=== PATIENT | male | born 1950 | race Caucasian/White ===

== ENCOUNTER 2019-10-31 00:12 | Emergency (ER) | payer BC ==
--- NOTE | 2019-10-31 00:15 | ED Physician Documentation ---
PD HPI CHEST PAIN - Stated complaint Stated Complaint: CHEST PX - History obtained from History obtained from: Patient - History of Present Illness Timing - onset: Enter time (23:30), Today Timing - onset during: Sleep Timing - duration: Minutes Timing - details: Abrupt onset, Intermittant Pain level max: 8 Pain level now: 2 Quality: Pain Location: Substernal Radiation: Other (does not radiate) Improved by: Nothing Worsened by: Other (no apparent exacerbating factors) Associated symptoms: Palpitations. No: Shortness of air, Diaphoresis, Nausea, Vomiting, Feeling faint / dizzy, General Weakness Similar symptoms before: Has not had sx before Recently seen: Not recently seen - Additional information Additional information: woken from sleep at 11:30 PM tonight due to midline chest pain and rapid palpitations. He denies h/o similar symptoms. Arrives to ED by private vehicle. Review of Systems Constitutional: reports: Reviewed and negative Eyes: reports: Reviewed and negative Ears: reports: Reviewed and negative Nose: reports: Reviewed and negative Throat: reports: Reviewed and negative Cardiac: reports: Chest pain / pressure, Palpitations. denies: Pedal edema, Calf pain Respiratory: reports: Reviewed and negative GI: reports: Reviewed and negative : reports: Reviewed and negative Skin: reports: Reviewed and negative Musculoskeletal: reports: Reviewed and negative Neurologic: reports: Reviewed and negative PD PAST MEDICAL HISTORY - Past Medical History Past Medical History: Yes GI: Other (IBS) - Past Surgical History Past Surgical History: No - Present Medications Home Medications: Ambulatory Orders Medication Instructions Recorded Confirmed Atorvastatin [Lipitor] 10/31/19 Metoprolol Tartrate 1 tab 10/31/19 - Allergies Allergies/Adverse Reactions: Allergies Allergy/AdvReac Type Severity Reaction Status Date / Time No Known Drug Allergies Allergy Verified 10/31/19 00:22 - Living Situation Living Situation: reports: With family Living Arrangement: reports: At home (visiting [facility] (from [place])) - Social History Does the pt smoke?: No PD ED PE NORMAL - Vitals Vital signs reviewed: Yes - General General: Alert and oriented X 3, No acute distress, Well developed/nourished - HEENT HEENT: Moist mucous membranes - Neck Neck: Supple, no meningeal sign - Respiratory Respiratory: No respiratory distress, Clear bilaterally - Abdomen Abdomen: Soft, Non tender - Derm Derm: Normal color, Warm and dry - Extremities Extremities: No edema - Neuro Neuro: Alert and oriented X 3 PD ED PE EXPANDED - Cardiac Cardiac: Tachy, Irregularly irregular Results - Vitals Vitals: Vital Signs - 24 hr 10/31/19 10/31/19 10/31/19 00:22 00:36 00:41 Temperature 36.5 C Heart Rate 114 H 131 H 125 H Respiratory 16 18 18 Rate Blood Pressure 148/104 H 136/76 H 110/70 O2 Saturation 100 10/31/19 10/31/19 10/31/19 00:45 01:42 04:06 Temperature Heart Rate 106 H 110 H 128 H Respiratory 18 20 Rate Blood Pressure 113/78 109/68 95/73 O2 Saturation 100 96 10/31/19 10/31/19 10/31/19 04:48 05:39 05:46 Temperature Heart Rate 133 H 124 H 127 H Respiratory 13 Rate Blood Pressure 107/64 105/54 L 106/76 O2 Saturation 97 Oxygen O2 Source Room air - EKG (time done) #1 Rate: Rate (enter#) (136) Rhythm: Atrial fibrillation [place]: Normal QRS: Normal Ischemia: ST depression (minimal, inferior leads) Other comments: Other comments (PVC, couplet) #2 Rate: Rate (enter#) (126) Rhythm: Atrial fibrillation [place]: Normal QRS: Normal Ischemia: Normal ST segments - Labs Labs: Laboratory Tests 10/31/19 10/31/19 10/31/19 00:22 00:22 00:22 WBC 5.1 RBC 4.35 L Hgb 14.6 Hct 44.6 MCV 102.5 H MCH 33.6 H MCHC 32.7 RDW 12.2 Plt Count 124 L MPV 12.9 H Neut # (Auto) 2.8 Lymph # (Auto) 1.6 Antelope # (Auto) 0.6 Eos # (Auto) 0.1 Baso # (Auto) 0.0 Absolute Nucleated RBC 0.00 Nucleated RBC % 0.0 PT 12.2 INR 1.1 APTT 29.8 Sodium 140 Potassium 3.7 Chloride 101 Carbon Dioxide 32 Anion Gap 7.0 BUN 30 H Creatinine 1.3 H Estimated GFR (MDRD) 54 L Glucose 109 H Calcium 9.6 Total Bilirubin 0.5 AST 43 H ALT 39 Alkaline Phosphatase 73 Troponin I High Sens Total Protein 6.5 L Albumin 3.8 Globulin 2.7 Albumin/Globulin Ratio 1.4 Lipase 64 H 10/31/19 00:22 WBC RBC Hgb Hct MCV MCH MCHC RDW Plt Count MPV Neut # (Auto) Lymph # (Auto) Antelope # (Auto) Eos # (Auto) Baso # (Auto) Absolute Nucleated RBC Nucleated RBC % PT INR APTT Sodium Potassium Chloride Carbon Dioxide Anion Gap BUN Creatinine Estimated GFR (MDRD) Glucose Calcium Total Bilirubin AST ALT Alkaline Phosphatase Troponin I High Sens 4.3 Total Protein Albumin Globulin Albumin/Globulin Ratio Lipase - Rads (name of study) chest xray Radiology: Prelim report reviewed, See rad report PD MEDICAL DECISION MAKING - ED course Complexity details: reviewed results, re-evaluated patient, considered differential, d/w patient, d/w family ED course: Rate improved with 10mg IV cardizem and this correlated with improvement in symptoms. In addition to ELMA, also frequent episodes of NSVT (up to 10 beats) which did not correlate with any symptoms (several episodes while I was in room and he denied feeling any different when I saw the NSVT on monitor). His episodes of NSVT became less frequent with the improvement in his rate. He had brief but recurrent episodes of chest pain during ED stay which did not correlate with rate nor rhythm. Patient says he had a cardiac cath (in [place]) approximately 1.5-2 years ago, says it showed some degree of blockage but not requiring stenting. [facility] is full. D/w Dr. Rodríguez (cardiology at [facility]), accepts patient for transfer. Departure - Departure Disposition: 02 Transfer Acute Care Hosp Clinical Impression: Nonsustained paroxysmal ventricular tachycardia Atrial fibrillation Qualifiers: Atrial fibrillation type: other persistent Qualified Code(s): I48.19 - Other persistent atrial fibrillation Chest pain Qualifiers: Chest pain type: unspecified Qualified Code(s): R07.9 - Chest pain, unspecified Condition: Stable Discharge Date/Time: 10/31/19 06:12
[2019-10-31] MEDS ORDERED: diltiaZEM INJ 5 MG/ML VIAL IVP STA (00:32)
[2019-10-31 00:40] LABS: INR 1.1 (0.8-1.2); PT - PROTHROMBIN TIME 12.2 secs (9.9-12.6)
[2019-10-31 00:43] LABS: BASOPHILS % (AUTO) 0.6 %; EOSINOPHILS # (AUTO) 0.1 10^3/uL (0.0-0.7); HGB - HEMOGLOBIN 14.6 g/dL (14.0-18.0); LYMPHOCYTES # (AUTO) 1.6 10^3/uL (1.5-3.5); LYMPHOCYTES % (AUTO) 31.8 %; MEAN CORPUSCULAR HEMOGLOBIN 33.6 pg (27.0-31.0); MEAN CORPUSCULAR HGB CONC 32.7 g/dL (32.0-36.0); MEAN CORPUSCULAR VOLUME 102.5 fL (80.0-94.0); MEAN PLATELET VOLUME 12.9 fL (7.4-11.4); MONOCYTES # (AUTO) 0.6 10^3/uL (0.0-1.0); MONOCYTES % (AUTO) 11.2 %; NEUTROPHILS # (AUTO) 2.8 10^3/uL (1.5-6.6); PLT - PLATELET COUNT 124 10^3/uL (130-450); RED BLOOD COUNT 4.35 10^6/uL (4.70-6.10); RED CELL DISTRIBUTION WIDTH 12.2 % (12.0-15.0); WHITE BLOOD COUNT 5.1 x10^3/uL (4.8-10.8)
[2019-10-31 00:47] LABS: ALBUMIN 3.8 g/dL (3.2-5.5); ALBUMIN/GLOBULIN RATIO 1.4 (1.0-2.2); BILIRUBIN,TOTAL 0.5 mg/dL (0.2-1.0); CALCIUM 9.6 mg/dL (8.5-10.3); CREATININE 1.3 mg/dL (0.6-1.2); TOTAL PROTEIN 6.5 g/dL (6.7-8.2)
--- NOTE | 2019-10-31 00:47 | XRAY Report ---
Reason: chest pain Procedure Date: 10/31/2019 Accession Number: [id number] / [id number] Procedure: XR - Chest 1 View X-Ray CPT Code: 79197 Final Report FULL RESULT: EXAM: CHEST RADIOGRAPHY EXAM DATE: 10/31/2019 12:35 AM. CLINICAL HISTORY: Chest pain. COMPARISON: None. TECHNIQUE: 2 view. FINDINGS: Lungs/Pleura: No focal opacities evident. No pleural effusion. No pneumothorax. Some biapical scarring. There are some overlying EKG wires. Mediastinum: Heart size is normal, although there is some prominence in the region of the left atrial appendage. Mediastinum otherwise unremarkable. Other: None. IMPRESSION: No acute disease. RADIA
[2019-10-31 00:48] LABS: PARTIAL THROMBOPLASTIN TIME 29.8 secs (24.9-33.3)
[2019-10-31] MEDS ORDERED: METOPROLOL 5 MG/5 ML VIAL IVP STA (03:50)
[2019-10-31] MEDS ORDERED: SODIUM CHLORIDE 0.9% 500 ML IV STA (03:50)
[2019-10-31] MEDS ORDERED: SODIUM CHLORIDE 0.9% 1,000 ML IV STA (04:22)
[2019-10-31 05:46] VITALS: BP 106/76
== END 2019-10-31 06:12 | disposition short-term general hospital (02) ==
LOC: ED 00:12
DX: I47.2 Ventricular tachycardia (principal); I48.19 Other persistent atrial fibrillation; R07.89 Other chest pain
CPT/HCPCS: 36415; 71045; 80053; 83690; 84484; 85025; 85610; 85730; 93005; 96361; 96374; 96375; 99285

== ENCOUNTER 2023-03-25 10:13 | Emergency (ER) | payer MEDICARE, OTHER ==
[2023-03-25] MEDS ORDERED: LIDOCAINE PATCH 5% TOP STA (13:16)
[2023-03-25] MEDS ORDERED: ACETAMINOPHEN 500 MG TABLET PO STA (13:16)
--- NOTE | 2023-03-25 13:17 | ED Physician Documentation ---
History of Present Illness - Stated complaint Stated Complaint: LT SIDE PX, - Chief complaint Chief Complaint: General - History obtained from History obtained from: Patient - Additonal information Additional information: 72-year-old gentleman with history of atrial fibrillation status post ablation and on a DOAC presents with left chest wall pain starting 2 nights ago but becoming more severe early in the morning today. He thinks it might be related to yard work, but there was no clear injury. He denies shortness of breath, cough, pedal edema. He has traveled recently, by plane from [place]. PD PAST MEDICAL HISTORY - Past Medical History Cardiovascular: High cholesterol, Arrhythmia GI: Other (IBS) - Past Surgical History Past Surgical History: No - Present Medications Home Medications: Ambulatory Orders Medication Instructions Recorded Confirmed Atorvastatin [Lipitor] 10/31/19 Metoprolol Tartrate 1 tab 10/31/19 Amoxicillin 1,000 mg PO TID #30 cap 03/25/23 - Allergies Allergies/Adverse Reactions: Allergies Allergy/AdvReac Type Severity Reaction Status Date / Time No Known Drug Allergies Allergy Verified 03/25/23 10:55 - Social History Does the pt smoke?: No Smoking Status: Never smoker PD ED PE NORMAL - Vitals Vital signs reviewed: Yes - General General: Alert and oriented X 3, No acute distress - HEENT HEENT: PERRL, EOMI - Neck Neck: Supple, no meningeal sign, No bony TTP - Cardiac Cardiac: RRR, No murmur - Respiratory Respiratory: No respiratory distress, Clear bilaterally, Other (I am unable to reproduce his pain with palpation of the chest wall.) - Abdomen Abdomen: Non tender - Derm Derm: Other (No shingles rash anywhere in the area of pain.) - Neuro Neuro: Alert and oriented X 3, Normal speech - Psych Psych: Normal mood, Normal affect Results - Vitals Vitals: Vital Signs - 24 hr 03/25/23 10:52 Temperature 36.3 C L Heart Rate 56 L Respiratory 16 Rate Blood Pressure 141/80 H O2 Saturation 98 Oxygen O2 Source Room air - Labs Labs: Laboratory Tests 03/25/23 03/25/23 03/25/23 13:30 13:30 13:30 WBC 6.8 RBC 4.90 Hgb 15.8 Hct 49.4 MCV 100.8 H MCH 32.2 H MCHC 32.0 RDW 12.2 Plt Count 166 MPV 12.4 H Neut # (Auto) 5.1 Lymph # (Auto) 1.2 L Garza # (Auto) 0.5 Eos # (Auto) 0.1 Baso # (Auto) 0.0 Absolute Nucleated RBC 0.00 Nucleated RBC % 0.0 Sodium 139 Potassium 4.9 Chloride 100 L Carbon Dioxide 29 Anion Gap 10.0 BUN 21 H Creatinine 1.1 Estimated GFR (MDRD) 65 L Glucose 97 Calcium 9.4 Troponin I High Sens 3.1 PD Medical Decision Making - ED course ED course: 72-year-old gentleman presents with atraumatic left chest wall pain. Differential diagnosis is broad and includes shingles although there is no clinical evidence of that, pneumonia, PE, UT, or any other concerning cause of acute chest pain. Work-up in the emergency department consisted of blood work showing a normal CBC, normal BMP, negative troponin, CT of the chest demonstrated pneumonia in the left lower lobe which will be treated with high- dose amoxicillin and a pulmonary nodule. The CAT scan was read was given to the patient aid in follow-up. Departure - Departure Disposition: 01 Home, Self Care Clinical Impression: Pneumonia, Chest pain, Pulmonary nodule Condition: Good Record reviewed to determine appropriate education?: Yes Instructions: Pneumonia Dc Prescriptions: Amoxicillin 1,000 mg PO TID #30 cap Comments: As discussed, your CAT scan does not show anything serious but you do have a minor pneumonia in the left lower lobe and also a small pulmonary nodule on that side. Consider talking with your doctor about a repeat CAT scan in 1 year to reassess. Return for new or worsening symptoms.
[2023-03-25] MEDS ORDERED: iohexoL-300 100 ML VIAL ONE (13:31)
[2023-03-25 13:37] LABS: BASOPHILS % (AUTO) 0.6 %; EOSINOPHILS # (AUTO) 0.1 10^3/uL (0.0-0.7); EOSINOPHILS % (AUTO) 0.7 %; HCT - HEMATOCRIT 49.4 % (42.0-52.0); HGB - HEMOGLOBIN 15.8 g/dL (14.0-18.0); LYMPHOCYTES # (AUTO) 1.2 10^3/uL (1.5-3.5); MEAN CORPUSCULAR HEMOGLOBIN 32.2 pg (27.0-31.0); MEAN CORPUSCULAR VOLUME 100.8 fL (80.0-94.0); MEAN PLATELET VOLUME 12.4 fL (7.4-11.4); MONOCYTES # (AUTO) 0.5 10^3/uL (0.0-1.0); NEUTROPHILS # (AUTO) 5.1 10^3/uL (1.5-6.6); NEUTROPHILS % (AUTO) 74.4 %; PLT - PLATELET COUNT 166 10^3/uL (130-450); RED CELL DISTRIBUTION WIDTH 12.2 % (12.0-15.0); WHITE BLOOD COUNT 6.8 x10^3/uL (4.8-10.8)
[2023-03-25 13:50] LABS: CALCIUM 9.4 mg/dL (8.5-10.3); CREATININE 1.1 mg/dL (0.6-1.2); POTASSIUM 4.9 mmol/L (3.5-5.0)
[2023-03-25] MEDS ORDERED: iohexoL-300 100 ML VIAL IVP ONE (14:25)
--- NOTE | 2023-03-25 14:51 | CT Report ---
PROCEDURE: ANGIO CHEST W/WO INDICATIONS: L chest pain, pe protocol CONTRAST: 80ml omni 300 TECHNIQUE: After the administration of intravenous contrast, 2 mm axial images were acquired from the pulmonary apices to the posterior costophrenic angles during the arterial phase. In addition, 1 mm lung kernel and 5 mm soft tissue kernel reconstructions were performed. 3-dimensional coronal oblique maximum int ensity projection (MIP) reformats, 8 mm axial MIP, and 5 mm coronal and sagittal MPR reformats were t hen performed through the thorax. For radiation dose reduction, the following was used: automated exp osure control, adjustment of mA and/or kV according to patient size. COMPARISON: None FINDINGS: Image quality: Excellent. Large vessels: No filling defects within the opacified pulmonary arteries, accounting for motion and contrast timing. No evidence of acute aortic syndrome or aortic aneurysm. Lungs and pleura: No consolidation. No pleural effusions. No pneumothorax. Tree in bud nodules in th e left lower lobe. A few scattered calcified granuloma. 4 mm solid nodule in the left lower lobe (ser ies 7, image 231). Mediastinum: Heart size is normal. No pericardial effusions. No mediastinal adenopathy by size criter ia. Chest wall and lower neck: Thyroid is unremarkable. No axillary or supraclavicular adenopathy by size . Bones: No aggressive osseous abnormality. Upper Abdomen: Unremarkable. IMPRESSION: No pulmonary embolus. Tree-in-bud nodules in the left lower lobe, consistent with infectious or inflammatory bronchiolitis. 4 mm solid nodule in the left lower lobe. Consider 12 month follow-up if this patient is at high risk for developing lung cancer, per Fleischner Society guidelines. Reviewed by: Farhan Villafana on 03/25/2023 2:50 PM PDT Approved by: Farhan Villafana on 03/25/2023 2:50 PM PDT Station ID: [id number]
[2023-03-25] MEDS ORDERED: AMOXICILLIN 250 MG CAPSULE PO STA (15:14)
[2023-03-25 15:18] VITALS: BP 152/88
== END 2023-03-25 15:28 | disposition home or self-care (01) ==
LOC: ED 10:13
DX: J18.9 Pneumonia, unspecified organism (principal); R91.1 Solitary pulmonary nodule
CPT/HCPCS: 36415; 71275; 80048; 84484; 85025; 99284; A9270; Q9967

== ENCOUNTER 2023-06-13 07:29 | Outpatient (CLI) | payer MEDICARE, OTHER ==
[2023-06-13 14:30] LABS: BASOPHILS # (AUTO) 0.1 10^3/uL (0.0-0.1); BASOPHILS % (AUTO) 1.1 %; EOSINOPHILS # (AUTO) 0.1 10^3/uL (0.0-0.7); EOSINOPHILS % (AUTO) 2.2 %; HCT - HEMATOCRIT 45.9 % (42.0-52.0); HGB - HEMOGLOBIN 14.3 g/dL (14.0-18.0); LYMPHOCYTES # (AUTO) 1.4 10^3/uL (1.5-3.5); LYMPHOCYTES % (AUTO) 31.9 %; MEAN CORPUSCULAR HEMOGLOBIN 31.8 pg (27.0-31.0); MEAN CORPUSCULAR HGB CONC 31.2 g/dL (32.0-36.0); MEAN CORPUSCULAR VOLUME 102.2 fL (80.0-94.0); MONOCYTES # (AUTO) 0.5 10^3/uL (0.0-1.0); NEUTROPHILS # (AUTO) 2.5 10^3/uL (1.5-6.6); NEUTROPHILS % (AUTO) 54.6 %; PLT - PLATELET COUNT 151 10^3/uL (130-450); RED BLOOD COUNT 4.49 10^6/uL (4.70-6.10); RED CELL DISTRIBUTION WIDTH 12.9 % (12.0-15.0); WHITE BLOOD COUNT 4.5 x10^3/uL (4.8-10.8)
[2023-06-13 15:39] LABS: THYROID STIMULATING HORMONE 2.19 uIU/mL (0.34-5.60)
[2023-06-13 15:41] LABS: ALBUMIN/GLOBULIN RATIO 1.7 (1.0-2.2); ALKALINE PHOSPHATASE 67 IU/L (42-121); ALT ALANINE AMINOTRANSFERASE 20 IU/L (10-60); AST ASPARTATE AMINOTRANSFERASE 25 IU/L (10-42); BILIRUBIN,TOTAL 0.7 mg/dL (0.2-1.0); BUN - BLOOD UREA NITROGEN 25 mg/dL (6-20); CALCIUM 9.5 mg/dL (8.5-10.3); CARBON DIOXIDE - CO2 34 mmol/L (21-32); CHLORIDE 102 mmol/L (101-111); CHOLESTEROL 146 mg/dL; CREATININE 1.3 mg/dL (0.6-1.3); GFR - MDRD 54 (>89); GLUCOSE 93 mg/dL (74-104); POTASSIUM 4.5 mmol/L (3.5-4.5); SODIUM 138 mmol/L (135-145); TOTAL PROTEIN 6.4 g/dL (6.4-8.9); TRIGLYCERIDES 69 mg/dL (48-352); VLDL CHOLESTEROL 14 mg/dL
[2023-06-13 16:10] LABS: CHOL/HDL RATIO 2.8 (<5.0); HDL CHOLESTEROL 52 mg/dL; LDL CHOLESTEROL,CALCULATED 80 mg/dL; LDL/HDL RATIO 1.5 (<3.6)
== END 2023-06-13 07:30 | disposition home or self-care (01) ==
LOC: LAB.S 07:29
PROVIDERS: ATTEND Nurse Practitioner Acute Care
DX: Z13.228 Encounter for screening for other metabolic disorders (principal); Z86.39 Personal history of other endocrine, nutritional and metabolic disease; Z13.220 Encounter for screening for lipoid disorders; Z13.29 Encounter for screening for other suspected endocrine disorder; Z13.0 Encounter for screening for diseases of the blood and blood-forming organs and certain disorders involving the immune mechanism; Z79.899 Other long term (current) drug therapy
CPT/HCPCS: 36415; 80053; 80061; 82306; 83721; 84443; 85025